=== PATIENT | male | born 1950 | race Caucasian/White ===

== ENCOUNTER 2018-12-09 15:52 | Emergency (ER) | payer OTHER ==
--- NOTE | 2018-12-09 15:58 | Emergency Department Record ---
History of Present Illness - General Chief Complaint: Chest Pain Stated Complaint: CHEST PAIN Time Seen by Provider: 12/09/18 15:53 Source: Patient, Family Mode of Arrival: Ambulatory Limitations: No limitations - History of Present Illness Initial Comments: 62 yo male presents with intermittent chest pain. The first episode was last night. He had a third episode around 9am. No episodes since then. The pain is located on the left side. The first episode stated while at rest watching TV. It lasted 1-2 minutes and resolved. He has a second episode at 2am again last 1-2 minutes. When the pain comes on he has some mild discomfort in the neck as well. No shortness of breath. No radiation to the arm or back. No pain with exertion. No pain with inspiration. He has HTN. He reports no history of prior stress test. P[facility] is at the [facility]. MD Complaint: Chest pain -: Days(s) Onset: During rest Pain Location: Left chest Pain Radiation: Neck Severity: Moderate Quality: Sharp Consistency: Intermittent Improves With: Nothing Worsens With: Nothing - Related Data Home Medications Medication Instructions Recorded Confirmed Last Taken Allopurinol 100 mg PO DAILY 12/09/18 12/09/18 12/09/18 Calcium Carbonate/Vitamin D3 1 each PO DAILY 12/09/18 12/09/18 12/09/18 [Super Calcium 600-Vit D3 400] Cephalexin 1,000 mg PO TID 12/09/18 12/09/18 12/09/18 Duloxetine HCl [Cymbalta] 60 mg PO QHS 12/09/18 12/09/18 Unknown Hydroxychloroquine Sulfate 200 mg PO DAILY 12/09/18 12/09/18 12/09/18 [Plaquenil] Lisinopril 10 mg PO DAILY 12/09/18 12/09/18 12/09/18 [place]-3 Fatty Acids/Fish Oil [Fish 2 each PO DAILY 12/09/18 12/09/18 12/09/18 Oil 1,000 mg Capsule] Pregabalin [Lyrica] 150 mg PO DAILY 12/09/18 12/09/18 12/09/18 Allergies Allergy/AdvReac Type Severity Reaction Status Date / Time No Known Drug Allergies Allergy Verified 12/09/18 16:01 Review of Systems Constitutional: Denies: Chills, Fever, Malaise, Weakness Eyes: Denies: Eye discharge ENT: Denies: Congestion, Throat pain Respiratory: Denies: Cough, Dyspnea, Hemoptysis, Stridor, Wheezes Cardiovascular: Reports: Chest pain. Denies: Dyspnea on exertion, Edema, Palpitations, Syncope Endocrine: Denies: Fatigue, Polydipsia, Polyuria Gastrointestinal: Denies: Abdominal pain, Diarrhea, Nausea, Vomiting Genitourinary: Denies: Dysuria, Frequency, Hematuria Musculoskeletal: Denies: Arthralgia, Back pain, Joint swelling, Myalgia Skin: Denies: Bruising, Change in color, Rash Neurological: Denies: Headache, Numbness, Weakness Psychiatric: Denies: Anxiety Hematological/Lymphatic: Denies: Blood Clots, Easy bleeding, Easy bruising, Swollen glands Physical Exam - General General Appearance: Alert, Oriented x3, Cooperative, No acute distress Limitations: No limitations - Head Head exam: Atraumatic, Normal inspection - Eye Eye exam: Normal appearance, PERRL. negative: Conjunctival injection, Scleral icterus - ENT ENT exam: Normal exam Ear exam: Normal external inspection Nasal Exam: Normal inspection Mouth exam: Normal external inspection - Neck Neck exam: Normal inspection - Respiratory Respiratory exam: Normal lung sounds bilaterally. negative: Accessory muscle use, Chest wall tenderness, Decreased breath sounds, Prolonged expiratory, Respiratory distress, Rhonchi, Stridor, Wheezes - Cardiovascular Cardiovascular Exam: Regular rate, Normal rhythm, Normal heart sounds Peripheral Pulses: 2+: Radial (R), Radial (L) - GI/Abdominal GI/Abdominal exam: Soft. negative: Tenderness - Rectal Rectal exam: Deferred - exam: Deferred - Extremities Extremities exam: Normal inspection, Full ROM, Normal capillary refill. negative: Joint swelling, Pedal edema, Tenderness - Back Back exam: Denies: CVA tenderness (R), CVA tenderness (L), Tenderness - Neurological Neurological exam: Alert, Oriented X3 - Psychiatric Psychiatric exam: Normal affect, Normal mood - Skin Skin exam: Dry, Intact, Normal color, Warm Course - Reevaluation(s) Reevaluation #1: EKG #1: 15:56 Rate: 62 Rhythm: sinus Guston: normal Intervals: normal ST segments: normal Prior: none 12/09/18 16:17 No current chest discomfort 12/09/18 16:18 12/09/18 16:32 The CBC was reviewed. No acute changes. 12/09/18 16:59 The CBC,CMP were negative The Troponin is negative 12/09/18 18:[address] of the chest was negative for any acute process. Few scattered pulmonary nodules. The case will be discussed with cardiology magnetic resonance imaging director for [facility] [place] 12/09/18 19:01 The patient has informed me he will not consent for transfer. We discussed at length the risks of DC home. We did discuss that his symptoms are not typical ( brief, non exertion related, no typical associated symptoms) but leaving has risks. He agrees with me discussing the case with cardiology. The case was discussed with Dr Spencer. Given the case is atypical the patient may follow up this week in the office if he remains symptom free. The patient was informed and with shared decision making with him knowing there are some risks in leaving he prefers DC home with referral. I placed a referral for Dr Fischer this week at [facility]. If he is unable to get an appointment he is to call the [place] office Given he is aware of the risks and the pain is atypical he will not be asked to sign out AMA 12/09/18 19:06 EKG #2: Rate: 62 Rhythm: siinus Guston: normal Intervals: normal ST segments: normal Prior: #1 (repeat performed to remove artifact in lead V3) Medical Decision Making - Lab Data Result diagrams: 12/09/18 16:10 12/09/18 16:10 Disposition Disposition: Discharge Clinical Impression: Atypical chest pain Disposition: Home, Self-Care Condition: (1) Good Instructions: Chest Pain (ED) Additional Instructions: You have been referred to the [facility] If you are not contacted call tomorrow to schedule the next available appointment Immediately return or be seen you have any return of pain or pain lasting more that 1-2 minutes You may increase your morning Lisinopril to 20mg. Call the [place] office at [phone] tomorrow if an appointment is not available in [place] The radiologist recommends follow up CT in one year for the pulmonary nodules Referrals: SONG FISCHER M.D. [MEDICAL DOCTOR] - [facility] [Provider Group] Forms: Patient Portal Access Time of Disposition: 19:06 Quality - Quality Measures Quality Measures: N/A - Blood Pressure Screening Does Patient Have Any of the Following: Active Dx of HTN Blood Pressure Classification: Hypertensive Reading Systolic Measurement: 193 Diastolic Measurement: 108 Screening for High Blood Pressure: Patient Exclusion, Hx of HTN [G9744]
[2018-12-09 16:28] LABS: BASO % 0.8 % (0-6); GRAN % 66.2 % (47-80); HEMATOCRIT 39.8 % (42.0-52.0); LYMPH % 18.6 % (16-45); MEAN CELL VOLUME 83.1 fl (81-97); MEAN CORPUSCULAR HEMOGLOBIN 27.1 pg (27-33); MEAN CORPUSCULAR HGB CONC 32.7 g/dl (32-36); MONO % 11.4 % (0-9); PLATELET COUNT 264 K/uL (130-400); RED BLOOD COUNT 4.79 M/uL (4.40-5.70); RED CELL DISTRIBUTION WIDTH 16.1 % (11.5-14.5); WHITE BLOOD COUNT W/O DIFF 6.3 K/uL (4.2-12.2)
[2018-12-09 16:43] LABS: BLOOD UREA NITROGEN 22 mg/dL (8-23); CREATININE 0.8 mg/dL (0.7-1.2); EST GLOMERULAR FILTRATION RATE > 60 mL/min
[2018-12-09 16:44] LABS: TOTAL PROTEIN 7.4 g/dL (6.6-8.7)
[2018-12-09 16:46] LABS: GLUCOSE,RANDOM 96 mg/dL (74-109); PARTIAL THROMBOPLASTIN TIME 30.3 SECONDS (24.5-39.1); PROTHROMBIN TIME (PATIENT) 10.2 SECONDS (9.5-12.1)
[2018-12-09 16:49] LABS: ALB/GLOB RATIO 1.5 (1.1-1.8); ALBUMIN 4.4 g/dL (4.0-5.0); ALKALINE PHOSPHATASE 136 U/L (40-129); ALT/SGPT 17 U/L (<41); AST/SGOT 18 U/L (10.0-50.0)
[2018-12-09] MEDS: ACETAMINOPHEN 500 MG TABLET PO ONE (18:41)
== END 2018-12-09 19:21 | disposition home or self-care (01) ==
LOC: ER 15:52
DX: R07.89 Other chest pain (principal); M54.5 Low back pain; R51 Headache; I10 Essential (primary) hypertension
CPT/HCPCS: 99284 ×2; 85025; 85730; 85610; 80053; 84484; 85379; 71275; 93005; 93010; Q9967